=== PATIENT | female | born 1930 | race Caucasian/White ===

== ENCOUNTER 2017-12-30 10:25 | Emergency (ER) | payer MEDICARE, OTHER ==
[2017-12-30] MEDS ORDERED: PUMP300C PO (10:36)
[2017-12-30] MEDS ORDERED: LEVO50TA86 PO (10:36)
--- NOTE | 2017-12-30 11:22 | ER Report ---
History and Physical Time Seen By MD: 11:20 Hx. of Stated Complaint: MID BACK PAIN STARTED 3 DAYS AGO, DIFFICULTY BREATHING HPI/ROS CHIEF COMPLAINT: Intermittent dyspnea and chest pain HISTORY OF PRESENT ILLNESS: This is an 87-year-old female presents to the emergency department with her daughter for intermittent dyspnea and chest pain. Patient has recently moved to [place] from [place] within the last month, she since then has developed some right calf pain as well as intermittent dyspnea more specifically over the last 3 days, she does have a very pinpoint location and her back that seems to catch her off guard causing shortness of breath. Patient does have a history of blood clots with no prophylactic treatment other than a daily 325 mg aspirin. She denies fevers or chills. No nausea or vomiting. No rashes. No headaches. REVIEW OF SYSTEMS: Constitutional: No fever, no chills. Eyes: No discharge. ENT: No sore throat. Cardiovascular: As above. Respiratory: As above. Gastrointestinal: No abdominal pain, no vomiting. Genitourinary: No hematuria. Musculoskeletal: As above. Skin: No rashes. Neurological: No headache. Allergies: Coded Allergies: Penicillins (Verified Allergy, Unknown, 12/30/17) Home Meds Reported Medications Pumpkin Seed Extract/Soy Germ (Azo Bladder Control Capsule) 300 Mg Capsule, PO PRN 12/30/17 Levothyroxine Sodium (LEVOTHYROXINE SODIUM) 50 Mcg Tablet, PO QDAY, TAB 12/30/17 Past Medical/Surgical History The patient has a past medical and surgical history of hypothyroidism, septoplas ty, thyroidectomy, tonsillectomy, pulmonary emboli, appendectomy, cholecystectomy, hysterectomy, urinary incontinence, scoliosis, right foot surgery, C4-5 fusion, shoulder surgery. Reviewed Nurses Notes: Yes Constitutional Vital Sign - Last 24 Hours 12/30/17 12/30/17 12/30/17 12/30/17 10:30 10:31 10:45 11:00 Temp 97.7 Pulse 65 61 63 Resp 16 20 B/P (MAP) 171/75 171/75 (107) Pulse Ox 92 91 O2 Delivery Room Air 12/30/17 12/30/17 12/30/17 12/30/17 11:15 11:30 11:45 11:53 Pulse 59 59 57 Resp 17 13 20 B/P (MAP) 167/75 (105) Pulse Ox 92 95 93 12/30/17 12/30/17 12/30/17 12/30/17 12:00 12:47 13:00 13:02 Pulse 52 54 Resp 12 10 22 B/P (MAP) 159/69 (99) Pulse Ox 90 93 93 12/30/17 12/30/17 12/30/17 12/30/17 13:17 13:25 13:32 13:47 Pulse 55 63 Resp 8 B/P (MAP) 176/74 (108) Pulse Ox 91 92 88 12/30/17 12/30/17 12/30/17 12/30/17 14:00 14:02 14:17 14:32 Pulse 59 70 56 Resp 11 18 10 B/P (MAP) 153/85 (107) Pulse Ox 92 94 12/30/17 14:34 B/P (MAP) 168/76 (106) Physical Exam General Appearance: The patient is alert, has no immediate need for airway protection and no signs of toxicity. Eyes: Pupils equal and round no pallor or injection. ENT, Mouth: Mucous membranes are moist. Respiratory: There are no retractions, lungs are clear to auscultation. Cardiovascular: Regular rate and rhythm, no murmurs, clicks or rubs. Gastrointestinal: Abdomen is soft and non tender, no masses, bowel sounds normal. Neurological: Alert and oriented 4. Moving all extremities. Following all commands. No focal neuro deficits. Skin: Warm and dry, no rashes. Musculoskeletal: Neck is supple non tender. Right sided lower back pain, increased intensity with palpation. No lesions, no bruising, no crepitus. Right upper calf pain with palpation. Extremities are nontender, nonswollen and have full range of motion. DIFFERENTIAL DIAGNOSIS: After history and physical exam differential diagnosis was considered for back pain including but not limited to muscular pain, herniated disc, spine fracture, intra-abdominal causes and urinary tract infection. shortness of breath including but not limited to pulmonary infectious process, COPD, asthma, pulmonary embolus and congestive heart failure. Medical Decision Making Data Points Result Diagram: 12/30/17 1145 12/30/17 1145 Laboratory Hematology Test 12/30/17 11:45 12/30/17 12:40 Red Blood Count 5.39 M/uL (4.17-5.56) Mean Corpuscular Volume 90.5 fL (80.0-96.0) Mean Corpuscular Hemoglobin 30.3 pg (26.0-33.0) Mean Corpuscular Hemoglobin Concent 33.5 g/dL (32.0-36.0) Red Cell Distribution Width 13.9 % (11.5-14.5) Mean Platelet Volume 7.1 fL (7.2-11.1) Neutrophils (%) (Auto) 56.0 % (39.4-72.5) Lymphocytes (%) (Auto) 28.5 % (17.6-49.6) Monocytes (%) (Auto) 11.3 % (4.1-12.4) Eosinophils (%) (Auto) 3.3 % (0.4-6.7) Basophils (%) (Auto) 0.9 % (0.3-1.4) Nucleated RBC Relative Count (auto) 0.1 /100WBC Neutrophils # (Auto) 4.8 K/uL (2.0-7.4) Lymphocytes # (Auto) 2.4 K/uL (1.3-3.6) Monocytes # (Auto) 1.0 K/uL (0.3-1.0) Eosinophils # (Auto) 0.3 K/uL (0.0-0.5) Basophils # (Auto) 0.1 K/uL (0.0-0.1) Nucleated RBC Absolute Count (auto) 0.01 K/uL D-Dimer Quantitative (PE/DVT) 0.70 ug/ml (0-0.50) Sodium Level 140 mmol/L (137-145) Potassium Level 4.2 mmol/L (3.5-5.0) Chloride Level 102 mmol/L (98-107) Carbon Dioxide Level 28 mmol/L (22-31) Blood Urea Nitrogen 16 mg/dl (7-18) Creatinine 0.70 mg/dl (0.52-1.04) Glomerular Filtration Rate Calc > 60.0 Random Glucose 99 mg/dl (75-110) Calcium Level 9.6 mg/dl (8.4-10.2) Total Bilirubin 0.5 mg/dl (0.2-1.3) Aspartate Amino Transf (AST/SGOT) 21 U/L (0-35) Alanine Aminotransferase (ALT/SGPT) 21 U/L (0-56) Alkaline Phosphatase 60 U/L (0-126) Troponin I < 0.012 ng/ml Total Protein 7.2 g/dl (6.3-8.2) Albumin 4.1 g/dl (3.5-5.0) Urine Color Straw Urine Clarity Clear Urine pH 6.0 pH (4.8-9.5) Urine Specific [place] 1.004 Urine Protein Negative mg/dL (NEGATIVE) Urine Glucose (UA) Negative mg/dL (NEGATIVE) Urine Ketones Negative mg/dL (NEGATIVE) Urine Blood Negative (NEGATIVE) Urine Nitrite Negative (NEGATIVE) Urine Bilirubin Negative (NEGATIVE) Urine Urobilinogen Negative mg/dL (0.2-1.9) Urine Leukocyte Esterase Negative (NEGATIVE) Urine RBC <1 /HPF (0-2/HPF) Urine WBC <1 /HPF (0-5/HPF) Urine Squamous Epithelial Cells None /LPF (</=FEW) Urine Bacteria Negative /HPF (NONE-FEW) Urine Mucus None /HPF (NONE-FEW) Chemistry Test 12/30/17 11:45 12/30/17 12:40 White Blood Count 8.5 k/uL (4.5-11.0) Red Blood Count 5.39 M/uL (4.17-5.56) Hemoglobin 16.3 g/dL (12.0-16.0) Hematocrit 48.7 % (34.0-47.0) Mean Corpuscular Volume 90.5 fL (80.0-96.0) Mean Corpuscular Hemoglobin 30.3 pg (26.0-33.0) Mean Corpuscular Hemoglobin Concent 33.5 g/dL (32.0-36.0) Red Cell Distribution Width 13.9 % (11.5-14.5) Platelet Count 310 K/uL (150-450) Mean Platelet Volume 7.1 fL (7.2-11.1) Neutrophils (%) (Auto) 56.0 % (39.4-72.5) Lymphocytes (%) (Auto) 28.5 % (17.6-49.6) Monocytes (%) (Auto) 11.3 % (4.1-12.4) Eosinophils (%) (Auto) 3.3 % (0.4-6.7) Basophils (%) (Auto) 0.9 % (0.3-1.4) Nucleated RBC Relative Count (auto) 0.1 /100WBC Neutrophils # (Auto) 4.8 K/uL (2.0-7.4) Lymphocytes # (Auto) 2.4 K/uL (1.3-3.6) Monocytes # (Auto) 1.0 K/uL (0.3-1.0) Eosinophils # (Auto) 0.3 K/uL (0.0-0.5) Basophils # (Auto) 0.1 K/uL (0.0-0.1) Nucleated RBC Absolute Count (auto) 0.01 K/uL D-Dimer Quantitative (PE/DVT) 0.70 ug/ml (0-0.50) Glomerular Filtration Rate Calc > 60.0 Calcium Level 9.6 mg/dl (8.4-10.2) Total Bilirubin 0.5 mg/dl (0.2-1.3) Aspartate Amino Transf (AST/SGOT) 21 U/L (0-35) Alanine Aminotransferase (ALT/SGPT) 21 U/L (0-56) Alkaline Phosphatase 60 U/L (0-126) Troponin I < 0.012 ng/ml Total Protein 7.2 g/dl (6.3-8.2) Albumin 4.1 g/dl (3.5-5.0) Urine Color Straw Urine Clarity Clear Urine pH 6.0 pH (4.8-9.5) Urine Specific [place] 1.004 Urine Protein Negative mg/dL (NEGATIVE) Urine Glucose (UA) Negative mg/dL (NEGATIVE) Urine Ketones Negative mg/dL (NEGATIVE) Urine Blood Negative (NEGATIVE) Urine Nitrite Negative (NEGATIVE) Urine Bilirubin Negative (NEGATIVE) Urine Urobilinogen Negative mg/dL (0.2-1.9) Urine Leukocyte Esterase Negative (NEGATIVE) Urine RBC <1 /HPF (0-2/HPF) Urine WBC <1 /HPF (0-5/HPF) Urine Squamous Epithelial Cells None /LPF (</=FEW) Urine Bacteria Negative /HPF (NONE-FEW) Urine Mucus None /HPF (NONE-FEW) Coagulation Test 12/30/17 11:45 D-Dimer Quantitative (PE/DVT) 0.70 ug/ml Urinalysis Test 12/30/17 12:40 Urine Color Straw Urine Clarity Clear Urine pH 6.0 pH (4.8-9.5) Urine Specific [place] 1.004 Urine Protein Negative mg/dL (NEGATIVE) Urine Glucose (UA) Negative mg/dL (NEGATIVE) Urine Ketones Negative mg/dL (NEGATIVE) Urine Blood Negative (NEGATIVE) Urine Nitrite Negative (NEGATIVE) Urine Bilirubin Negative (NEGATIVE) Urine Urobilinogen Negative mg/dL (0.2-1.9) Urine Leukocyte Esterase Negative (NEGATIVE) Urine RBC <1 /HPF (0-2/HPF) Urine WBC <1 /HPF (0-5/HPF) Urine Squamous Epithelial Cells None /LPF (</=FEW) Urine Bacteria Negative /HPF (NONE-FEW) Urine Mucus None /HPF (NONE-FEW) EKG/Imaging EKG Interpretation 12 lead EKG: Time of EKG 1145. Rhythm: Sinus bradycardia, ventricular rate 56 bpm. Glenvil: normal QRS: normal ST segments: No ST elevation or depression identified. Imaging EXAMINATION: PA and Lateral Chest 12/30/2017 11:35 AM HISTORY: Intermittent dyspnea COMPARISON: None available FINDINGS: Cardiomediastinal contours: Normal heart size. Atherosclerotic aorta. Lungs and pleura: Normal vasculature. Density in both cardiophrenic angles presumably simply some pericardial fat. No acute finding. Bones/soft tissues: Osteopenia. Degenerative changes in the spine and shoulders. Partially imaged lumbar fusion. IMPRESSION: No acute cardiopulmonary abnormality. Report Dictated By: Ovidio Johnson MD at 12/30/2017 12:18 PM Report E-Signed By: Ovidio Johnson MD at 12/30/2017 12:21 PM WSN:[id number] [place] [facility] [place] Leatha Sim[place] : 1930 Visit/Account:[id number] Date of Sevice: 12/30/2017 EXAMINATION: Unilateral right lower extremity deep vein duplex Doppler ultrasound 12/30/2017 11:35 AM History: r calf pain COMPARISON: Negative bilateral study 12/31/2012 FINDINGS: Grayscale compression, duplex and color Doppler interrogation of the right lower extremity deep veins from common femoral vein to proximal calf was performed. The greater saphenous vein in the ipsilateral proximal thigh was evaluated using similar technique. Right lower extremity: Common femoral vein negative Femoral vein negative Deep femoral vein - negative Popliteal vein negative Visualized deep calf veins negative Greater saphenous vein in the proximal thigh negative Popliteal fossa: negative IMPRESSION: Negative right lower extremity evaluation for DVT I called preliminary negative report to MOHAMUD VIVAS at 12/30/2017 1:40 PM based on the technologist impression. At that time we had as yet been unable to transmit the images for my review, however my impression is still negative after I have now been able to review the images.. Report Dictated By: Ovidio Johnson MD at 12/30/2017 12:57 PM Report E-Signed By: Ovidio Johnson MD at 12/30/2017 1:58 PM WSN:[id number] ED Course/Re-evaluation Clinical Indication for ER IV: Hydration, IV Access ED Course The patient was admitted to a room. A history and physical were obtained. Differential diagnoses were considered. IV was started. CBC, CMP, troponin and d-dimer were obtained. Lab studies unremarkable. Negative troponin. Positive D- dimer. Ultra sound of RLE was negative. Chest X-ray negative for any acute cardiopulmonary process. I reviewed the labs with the patient. I did tell her with the elevated D-dimer, her history of clots and PE's and current symptoms I would recommend a CTA, she agreed. CTA was negative for PE. I reviewed the results with the patient. I did reexamine her again, we discussed shingles as a possibility but on re-exam I believe the pain she is experiencing is a muscle spasm or cramp, I believe the same is true for her right calf. I did recommend, some light ROM exercises, take ibuprofen or Tylenol as needed and try a topical pain reliever such as Aspercreme. She is establishing care with Dr. Moreland January 24. She denies any other needs at this time. Return to the ED for any other concerns or worsening symptoms. Decision to Disposition Date: Dec 30, 2017 Decision to Disposition Time: 14:27 Depart Departure Latest Vital Signs Vital Signs Date Time Temp Pulse Resp B/P (MAP) Pulse Ox O2 Delivery O2 Flow Rate FiO2 12/30/17 14:34 168/76 (106) 12/30/17 14:32 56 10 12/30/17 14:17 94 12/30/17 10:30 97.7 Room Air Impression: Primary Impression: Back pain Condition: Improved Disposition: HOME OR SELF-CARE Referrals: NINI MORELAND MD Patient Instructions: Back Pain (ED), Muscle Spasm (ED), Muscle Strain (ED) Additional Instructions: There is no evidence of a pulmonary embolus on CT or DVT on ultrasound. Lab studies look good. I believe you have a muscle strain in your back that is causing your shortness of breath. Take Ibuprofen or Tylenol as needed for pains. You can try a topical pain reliever too such as Aspercreme. Be sure to drink plenty of fluids. Get plenty of rest. Return to the ED for any other concerns or worsening symptoms. Keep your scheduled anointment with Dr. Moreland. Problem Qualifiers Primary Impression: Back pain Back pain location: thoracic back pain Chronicity: acute Back pain laterality: right Qualified Codes: M54.6 - Pain in thoracic spine MOHAMUD VIVASP-BC Dec 30, 2017 11:22
[2017-12-30] MEDS ORDERED: NS(*) 0.9% 500 ML BAG 500 ML IV ONE (11:35)
--- NOTE | 2017-12-30 11:50 | EKG ---
[place] [facility] [place] NAME: LIZBETH CHEN : [id number] MR: [id number] V: [id number] EXAM DATE: ORDERING PHYSICIAN: MOHAMUD VIVAS TECHNOLOGIST: RAFAEL Test Reason : DYSPNEA Blood Pressure : / mmHG Vent. Rate : 056 BPM Atrial Rate : 056 BPM P-R Int : 182 ms QRS Dur : 078 ms QT Int : 460 ms P-R-T Axes : 056 008 055 degrees QTc Int : 443 ms Sinus bradycardia Otherwise normal ECG No previous ECGs available Confirmed by Sachin Zamora ([id number]) on 12/30/2017 4:23:35 PM Referred By: SHRUTHI Confirmed By:Sachin Lopez
[2017-12-30 11:55] LABS: PLATELET COUNT, AUTOMATED 310 K/uL (150-450)
--- NOTE | 2017-12-30 12:25 | RADIOLOGY IMAGING REPORT ---
FACILITY: [facility] PATIENT NAME: Leatha Simms : 1930 MR: [id number] V: [id number] EXAM DATE: ORDERING PHYSICIAN: MOHAMUD VIVAS TECHNOLOGIST: Location: [facility] Patient: Leatha Simms : 1930 Visit/Account:[id number] Date of Sevice: 12/30/2017 EXAMINATION: PA and Lateral Chest 12/30/2017 11:35 AM HISTORY: Intermittent dyspnea COMPARISON: None available FINDINGS: Cardiomediastinal contours: Normal heart size. Atherosclerotic aorta. Lungs and pleura: Normal vasculature. Density in both cardiophrenic angles presumably simply some per icardial fat. No acute finding. Bones/soft tissues: Osteopenia. Degenerative changes in the spine and shoulders. Partially imaged lum bar fusion. IMPRESSION: No acute cardiopulmonary abnormality. Report Dictated By: Ovidio Johnson MD at 12/30/2017 12:18 PM Report E-Signed By: Ovidio Johnson MD at 12/30/2017 12:21 PM WSN:[id number]
[2017-12-30] MEDS ORDERED: NS(*) 0.9% 50 ML BAG 50 ML ONE (13:36)
[2017-12-30] MEDS ORDERED: IOPAMIDOL 76% 75 ML INFUS BTL 75 ML ONE (13:36)
--- NOTE | 2017-12-30 14:01 | RADIOLOGY IMAGING REPORT ---
FACILITY: [facility] [place] PATIENT NAME: Leatha Simms : 1930 MR: [id number] V: [id number] EXAM DATE: ORDERING PHYSICIAN: MOHAMUD VIVAS TECHNOLOGIST: Location: [facility] [place] Patient: Leatha Simms : 1930 Visit/Account:[id number] Date of Sevice: 12/30/2017 EXAMINATION: Unilateral right lower extremity deep vein duplex Doppler ultrasound 12/30/2017 11:35 A M History: r calf pain COMPARISON: Negative bilateral study 12/31/2012 FINDINGS: Grayscale compression, duplex and color Doppler interrogation of the right lower extremity deep veins from common femoral vein to proximal calf was performed. The greater saphenous vein in the ipsilater al proximal thigh was evaluated using similar technique. Right lower extremity: Common femoral vein negative Femoral vein negative Deep femoral vein - negative Popliteal vein negative Visualized deep calf veins negative Greater saphenous vein in the proximal thigh negative Popliteal fossa: negative IMPRESSION: Negative right lower extremity evaluation for DVT I called preliminary negative report to MOHAMUD VIVAS at 12/30/2017 1:40 PM based on the technologi st impression. At that time we had as yet been unable to transmit the images for my review, however m y impression is still negative after I have now been able to review the images.. Report Dictated By: Ovidio Johnson MD at 12/30/2017 12:57 PM Report E-Signed By: Ovidio Johnson MD at 12/30/2017 1:58 PM WSN:[id number]
--- NOTE | 2017-12-30 14:15 | RADIOLOGY IMAGING REPORT ---
FACILITY: [facility] - [place] PATIENT NAME: Leatha Simms : 1930 MR: [id number] V: [id number] EXAM DATE: ORDERING PHYSICIAN: MOHAMUD VIVAS TECHNOLOGIST: Location: [facility] [place] Patient: Leatha Simms : 1930 Visit/Account:[id number] Date of Sevice: 12/30/2017 EXAMINATION: CTA Chest With Contrast 12/30/2017 1:15 PM HISTORY: back pain, intermit dysp, elevated dimer TECHNIQUE: Pulmonary embolus protocol - Thin-slice axial imaging of the chest was performed during maximal pulmonary arterial opacification with intravenous nonionic iodinated contrast. 3D slab MIPs a nd 2D reconstructions in the coronal and sagittal planes were performed. Repair Service Dispatcher images have b een stored on PACS. Contrast: 75 mL of IV Isovue 370. One of the following dose optimization techniques was utilized in the performance of this exam: Autom ated exposure control; adjustment of the mA and/or kV according to the patient's size; or use of an i terative reconstruction technique. Specific details can be referenced in the facility's radiology C T exam operational policy. COMPARISON STUDIES: Chest x-ray today. FINDINGS: Angiographic Findings: Pulmonary arteries: There are no filling defects in the main, right, left, lobar, segmental or visual ized sub-segmental branches of the pulmonary arterial system Other vasculature: Atherosclerotic but normal caliber thoracic aorta. Coronary calcifications are p resent, not unexpected for age. Additional non-angiographic findings: Lungs / pleura: negative Mediastinum / kylah: negative Heart / pericardium: negative Musculoskeletal / Body wall: Degenerative spurring along the spine. Sclerotic focus in the T6 vertebr al body is indeterminate although likely benign. Lymph node assessment: negative Lower neck: negative Upper abdomen: Incidental small anterolateral accessory splenule. IMPRESSION: Negative CTA evaluation for PE. No significant acute finding in the chest. Report Dictated By: Ovidio Johnson MD at 12/30/2017 1:58 PM Report E-Signed By: Ovidio Johnson MD at 12/30/2017 2:12 PM WSN:[id number]
[2017-12-30 14:34] VITALS: BP 168/76
== END 2017-12-30 14:47 | disposition home or self-care (01) ==
LOC: ER 11:11
DX: M54.6 Pain in thoracic spine (principal)
CPT/HCPCS: 71046; 71275; 81001; 84484; 85025; 85379; 93005; 93971; 96360; 99284; J7040; J7050; Q9967; 82040; 82247; 82310; 82374; 82435; 82565; 82947; 84075; 84132; 84155; 84295; 84450; 84460; 84520

== ENCOUNTER → 2018-01-24 | Outpatient (CLI) | payer MEDICARE, OTHER ==
[~2018-01-24] MED LIST: ASCO-182 PO; ASPI-757 PO; CALC500T6 PO; CHOL10005 PO; LANS15CA28 PO; LEV125 PO; LEVO50TA86 PO; PUMP300C PO; VITA1CAP46 PO; [UNRECOGNIZED DRUG - CODE] PO
== END ==
LOC: LAB 12:07
PROVIDERS: ATTEND Family Medicine
DX: E03.9 Hypothyroidism, unspecified (principal); R03.0 Elevated blood-pressure reading, without diagnosis of hypertension
CPT/HCPCS: 36415; 84443

== ENCOUNTER → 2018-01-31 | Outpatient (CLI) | payer MEDICARE, OTHER ==
[~2018-01-31] MED LIST changes: +BARIUM SULFATE 176 GM BTL PO ONE; +BARIUM SULFATE 340 GM POWD ONE; +LEV112 PO
--- NOTE | 2018-01-31 17:02 | RADIOLOGY IMAGING REPORT ---
FACILITY: [facility] [place] PATIENT NAME: Leatha Simms : 1930 MR: [id number] V: [id number] EXAM DATE: ORDERING PHYSICIAN: NINI OMRELAND TECHNOLOGIST: [facility] Patient: Leatha Simms : 1930 Visit/Account:[id number] Date of Sevice: 01/31/2018 ESOPHAGRAM HISTORY: Patient feels like food gets stuck. Patient reports that her esophagus was "stretched" yea rs ago via endoscopy COMPARISON: None. FINDINGS: Single and double contrast esophagrams were performed. On the AP oblique views esophagus is unremark able in appearance. A barium tablet passes into the stomach following short hesitation at the gastro esophageal junction. At the gastroesophageal junction the lumen is lower normal limits in diameter. There are no focal lesions seen. Since The patient complained of sensation of food getting stuck in the neck I performed a lateral swallowing study. There is a very prominent degenerative anterior renata ny excrescence off the lower cervical spine at the level of C5-6 which impresses upon the posterior e sophagus causing some narrowing in the AP dimension. A barium tablet passed through this area withou t hesitation but I question whether patient does have food the occasionally getting stuck in the hypo pharynx due to extrinsic compression. 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 It is unknown whether this is a problem but corresponds to the area wh ere the patient is symptomatic. At the gastroesophageal junction there is mild narrowing but a barium tablet does pass after short he sitation the stomach. Report Dictated By: James Saul MD at 01/31/2018 4:49 PM Report E-Signed By: James Saul MD at 01/31/2018 4:58 PM WSN:[id number]
== END ==
LOC: RAD 00:56
PROVIDERS: ATTEND Family Medicine
DX: K21.9 Gastro-esophageal reflux disease without esophagitis (principal); R13.10 Dysphagia, unspecified; Z87.19 Personal history of other diseases of the digestive system; M51.36 Other intervertebral disc degeneration, lumbar region
CPT/HCPCS: 74220

== ENCOUNTER → 2018-06-20 | Outpatient (REF) | payer MEDICARE, OTHER ==
[~2018-06-20] MED LIST changes: -BARIUM SULFATE 176 GM BTL PO ONE; -BARIUM SULFATE 340 GM POWD ONE
== END ==
LOC: ZZSTITCHES 12:49
PROVIDERS: ATTEND Physician Assistant
DX: M25.571 Pain in right ankle and joints of right foot (principal); Z86.711 Personal history of pulmonary embolism
CPT/HCPCS: 85379

== ENCOUNTER → 2018-08-07 | Outpatient (CLI) | payer MEDICARE, OTHER | LOC: US 00:43 | PROVIDERS: ATTEND Internal Medicine Cardiovascular Disease | DX: I71.2 Thoracic aortic aneurysm, without rupture (principal) | CPT/HCPCS: 93306 ==